=== PATIENT | male | born 1990 | race Caucasian/White ===

== ENCOUNTER → 2016-10-31 | Outpatient (CLI) | payer OTHER ==
[2013-10-27 13:00] VITALS: BP 138/73
--- NOTE | 2016-10-31 15:38 | KCIC ---
Indication: Reactive TB skin test. Time of exam 3:13 PM No prior studies are available for comparison. The heart size is normal. The lungs are clear. The pulmonary vascularity is normal. No infiltrate, effusion or pneumothorax is detected. IMPRESSION: No acute cardiopulmonary process is detected. No findings to suggest tuberculosis are identified. Electronically signed by: Mg Escudero MD (10/31/2016 3:35 PM) [id number]
== END | disposition home or self-care (01) ==
LOC: KCIC 15:06
PROVIDERS: ATTEND Family Medicine
DX: R76.11 Nonspecific reaction to tuberculin skin test without active tuberculosis (principal)
CPT/HCPCS: 71020